=== PATIENT | female | born 1965 | race Caucasian/White ===

== ENCOUNTER 2017-09-15 01:05 | Inpatient (IN) ==
--- OUTSIDE RECORDS SUMMARY | 2017-09-15 01:13 | External Medical Summary | Referral Summary ---
:1965 Author Organization [facility] Address [address] [place] [address] Care Team Providers Name Role Phone Nav Lan Primary Care Physician Encounter [facility] [phone] Date(s): 08/30/15 - 08/30/15 [facility] Gambino [address] [address]- [place] Discharge Diagnosis: Chronic right hip pain Discharge Diagnosis: Well adult Discharge Disposition: 01-Home or Self Care Attending Physician: Nav Lan MD Admitting Physician: Nav Lan MD Vital Signs Most recent to oldest [Reference Range]: 1 Peripheral Pulse Rate [60-100 bpm] 79 bpm (08/30/15 8:31 AM) Blood Pressure [90-140/60-90 mmHg] 120/90 mmHg (08/30/15 8:31 AM) SpO2 96 % (08/30/15 8:31 AM) Problem List No Known Problems Allergies, Adverse Reactions, Alerts Substance Reaction Severity Status penicillin Active Medications Amethia Lo oral tablet 1 tabs, Oral, Daily, 0 Refill(s) Start Date: 08/30/15 Status: Ordered Results Hematology Most recent to oldest [Reference Range]: 1 WBC [4.8-10.8 10*3/uL] 7.9 10*3/uL (08/30/15 9:15 AM) RBC [4.00-5.20] 4.54 (08/30/15 9:15 AM) Hgb [12.0-16.0 gm/dL] 14.3 gm/dL (08/30/15 9:15 AM) Hct [37.0-47.0 %] 40.5 % (08/30/15 9:15 AM) MCV [82.0-99.0 fL] 89.2 fL (08/30/15:15 AM) MCH [27.0-32.0 pg] 31.5 pg (08/30/15 AM) MCHC [32.0-36.0 gm/dL] 35.3 gm/dL (08/30/15:15 AM) RDW [11.5-14.5 %] 12.7 % (08/30/15 AM) Platelet [150-400 10*3/uL] 239 10*3/uL (08/30/15:15 AM) MPV [8.8-14.8 fL] 11.8 fL (08/30/15: AM) Immature Granulocytes [0.0-1.0 %] 0.1 % (08/30/15 AM) Neutrophils [51-75 %] 59 % (08/30/15 AM) Lymphocytes [20-46 %] 34 % (08/30/1515 AM) Monocytes [4-11 %] 6 % (08/30/15:15 AM) Eosinophils [0-4 %] 1 % (08/30/15:15 AM) Basophils [0-2 %] 0 % (08/30/15 AM) Neutro Absolute [1.90-7.00 10*3] 4.68 10*3 (08/30/15:15 AM) Lymph Absolute [0.80-3.30 10*3] 2.65 10*3 (08/30/15:15 AM) Hickman Absolute [0.30-1.00 10*3] 0.50 10*3 (08/30/15 9:15 AM) Eos Absolute [0.00-0.50 10*3] 0.04 10*3 (08/30/15 9:15 AM) Baso Absolute [0.00-0.20 10*3] 0.01 10*3 (08/30/15 9:15 AM) Chemistry Most recent to oldest [Reference Range]: 1 Sodium Lvl [135-144 mEq/L] 141 mEq/L (08/30/15 9:15 AM) Potassium Lvl [3.5-5.2 mEq/L] 4.2 mEq/L (08/30/15 9:15 AM) Chloride [99-111 mEq/L] 107 mEq/L (08/30/15 9:15 AM) CO2 [22-31 mEq/L] 26 mEq/L (08/30/15 9:15 AM) AGAP [3-20] 8 (08/30/15 9:15 AM) BUN [7-19 mg/dL] 10 mg/dL (08/30/15:15 AM) Glucose Lvl [70-99 mg/dL] 89 mg/dL (08/30/15 9:15 AM) Creatinine Lvl [0.57-1.11 mg/dL] 0.82 mg/dL (08/30/15 9:15 AM) eGFR [>60 mL/min] >60 mL/min 1 (08/30/15:15 AM) Calcium Lvl [8.9-10.5 mg/dL] 9.5 mg/dL (08/30/15 9:15 AM) Albumin Lvl [3.5-5.0 gm/dL] 4.2 gm/dL (08/30/15 9:15 AM) Total Protein [6.4-8.3 gm/dL] 6.7 gm/dL (08/30/15 9:15 AM) Globulin [1.8-4.0 gm/dL] 2.5 gm/dL (08/30/15 9:15 AM) ALT [0-55 U/L] 11 U/L (08/30/15 9:15 AM) AST [5-34 U/L] 17 U/L (08/30/15:15 AM) Alk Phos [40-150 U/L] 51 U/L (08/30/15 9:15 AM) Bili Total [0.2-1.2 mg/dL] 0.5 mg/dL (08/30/15 9:15 AM) Chol [0-199 mg/dL] 190 mg/dL (08/30/15 9:15 AM) Trig [0-149 mg/dL] 90 mg/dL (08/30/15 9:15 AM) HDL [40-84 mg/dL] 68 mg/dL (08/30/15 9:15 AM) LDL [0-130 mg/dL] 104 mg/dL (08/30/15 9:15 AM) VLDL Cholesterol [0-28 mg/dL] 18 mg/dL (08/30/15 9:15 AM) Cardiac Risk [0.0-5.0] 2.8 (08/30/15 9:15 AM) 1Result Comment: Multiply eGFR results by 1.21 for race. Immunizations No data available for this section Procedures Procedure Date Related Diagnosis Body Site Collection of venous blood by venipuncture 08/30/15 Social History Social History Type Response Smoking Status Former smoker; Type: Cigarettes; Tobacco use per day: Less than Pack; Stopped at age: 34 Assessment and Plan Extracted from: Title: Ambulatory Patient Education Author: Nav Lan MD Date: Family Medicine Health Maintenance Adopting a healthy lifestyle and getting preventive care can go a long way to promote health and wellness. Talk with your health care provider about what schedule of regular examinations is right for yo u. This is a good chance for you to check in with your provider about disease prevention and staying healthy. In between checkups, there are plenty of things you can do on your own. Experts have done a lot of research about which lifestyle changes and preventive measures are most likely to keep you healthy. Ask your health care provider for more information. WEIGHT AND DIET Eat a healthy diet Be sure to include plenty of vegetables, fruits, low-fat dairy products, and lean protein. Do not eat a lot of foods high in solid fats, added sugars, or salt. Get regular exercise. This is one of the most important things you can do for your health. Most adults should exercise for at least 150 minutes each week. The exercise should increase your heart rate and make you sweat (moderate-intensity exercise). Most adults should also do strengthening exercises at least twice a week. This is in addition to the moderate-intensity exercise. Maintain a healthy weight Body mass index (BMI) is a measurement that can be used to identify possible weight problems. It estimates body fat based on height and weight. Your health care provider can help determine your BMI and help you achieve or maintain a healthy weight. For females 20 years of age and older: A BMI below 18.5 is considered underweight. A BMI of 18.5 to 24.9 is normal. A BMI of 25 to 29.9 is considered overweight. A BMI of 30 and above is considered obese. Watch levels of cholesterol and blood lipids You should start having your blood tested for lipids and cholesterol at 20 years of age, then have this test every 5 years. You may need to have your cholesterol levels checked more often if: Your lipid or cholesterol levels are high. You are older than 50 years of age. You are at high risk for heart disease. CANCER SCREENING Lung Cancer Lung cancer screening is recommended for adults 5580 years old who are at high risk for lung cancer because of a history of smoking. A yearly low-dose CT scan of the lungs is recommended for people who: Currently smoke. Have quit within the past 15 years. Have at least a 63-jjxo-twca history of smoking. A pack year is smoking an average of one pack of cigarettes a day for 1 year. Yearly screening should continue until it has been 15 years since you quit. Yearly screening should stop if you develop a health problem that would prevent you from having lung cancer treatment. Breast Cancer Practice breast self-awareness. This means understanding how your breasts normally appear and feel. It also means doing regular breast self-exams. Let your health care provider know about any changes, no matter how small. If you are in your 20s or 30s, you should have a clinical breast exam (CBE ) by a health care provider every 13 years as part of a regular health exam. If you are 40 or older, have a CBE every year. Also consider having a breast X-ray (mammogram) every year. If you have a family history of breast cancer, talk to your health care provider about genetic screening. If you are at high risk for breast cancer, talk to your health care provider about having an MRI and a mammogram every year. Breast cancer gene (BRCA) assessment is recommended for women who have family members with BRCA-related cancers. BRCA-related cancers include: Breast. Ovarian. Tubal. Peritoneal cancers. Results of the assessment will determine the need for genetic counseling and BRCA1 and BRCA2 testing. Cervical Cancer Routine pelvic examinations to screen for cervical cancer are no longer recommended for non women who are considered low risk for cancer of the pelvic organs (ovaries, uterus, and vagina) and wh o do not have symptoms. A pelvic examination may be necessary if you have symptoms including those associated with pelvic infections. Ask your health care provider if a screening pelvic exam is right for you. The Pap test is the screening test for cervical cancer for women who are considered at risk. If you had a hysterectomy for a problem that was not cancer or a condition that could lead to cancer, then you no longer need Pap tests. If you are older than 65 years, and you have had normal Pap tests for the past 10 years, you no longer need to have Pap tests. If you have had past treatment for cervical cancer or a condition that could lead to cancer, you need Pap tests and screening for cancer for at least 20 years after your treatment. If you no longer get a Pap test, assess your risk factors if they change ( such as having a new sexual partner). This can affect whether you should start being screened again. Some women have medical problems that increase their chance of getting cervical cancer. If this is the case for you, your health care provider may recommend more frequent screening and Pap tests. The human papillomavirus (HPV) test is another test that may be used for cervical cancer screening. The HPV test looks for the virus that can cause cell changes in the cervix. The cells collected during the Pap test can be tested for HPV. The HPV test can be used to screen women 30 years of age and older. Getting tested for HPV can extend the interval between normal Pap tests from three to five years. An HPV test also should be used to screen women of any age who have unclear Pap test results. After 30 years of age, women should have HPV testing as often as Pap tests. Colorectal Cancer This type of cancer can be detected and often prevented. Routine colorectal cancer screening usually begins at 50 years of age and continues through 75 years of age. Your health care provider may recommend screening at an earlier age if you have risk factors for colon cancer. Your health care provider may also recommend using home test kits to check for hidden blood in the stool. A small camera at the end of a tube can be used to examine your colon directly (sigmoidoscopy or colonoscopy). This is done to check for the earliest forms of colorectal cancer. Routine screening usually begins at age 50. Direct examination of the colon should be repeated every 510 years through 75 years of age. However, you may need to be screened more often if early forms of precancerous polyps or small growths are found. Skin Cancer Check your skin from head to toe regularly. Tell your health care provider about any new moles or changes in moles, especially if there is a change in a mole's shape or color. Also tell your health care provider if you have a mole that is larger than the size of a pencil eraser. Always use sunscreen. Apply sunscreen liberally and repeatedly throughout the day. Protect yourself by wearing long sleeves, pants, a wide-brimmed hat, and sunglasses whenever you are outside. HEART DISEASE, DIABETES, AND HIGH BLOOD PRESSURE Have your blood pressure checked at least every 12 years. High blood pressure causes heart disease and increases the risk of stroke. If you are between 55 years and 79 years old, ask your health care provider if you should take aspirin to prevent strokes. Have regular diabetes screenings. This involves taking a blood sample to check your fasting blood sugar level. If you are at a normal weight and have a low risk for diabetes, have this test once every three years after 45 years of age. If you are overweight and have a high risk for diabetes, consider being tested at a younger age or more often. PREVENTING INFECTION Hepatitis B If you have a higher risk for hepatitis B, you should be screened for this virus. You are considered at high risk for hepatitis B if: You were born in a country where hepatitis B is common. Ask your health care provider which countries are considered high risk. Your parents were born in a high-risk country, and you have not been immunized against hepatitis B (hepatitis B vaccine). You have HIV or AIDS. You use needles to inject street drugs. You live with someone who has hepatitis B. You have had sex with someone who has hepatitis B. You get hemodialysis treatment. You take certain medicines for conditions, including cancer, organ transplantation, and autoimmune conditions. Hepatitis C Blood testing is recommended for: Everyone born from 1945 through 1965. Anyone with known risk factors for hepatitis C. Sexually transmitted infections (STIs) You should be screened for sexually transmitted infections (STIs) including gonorrhea and chlamydia if: You are sexually active and are younger than 24 years of age. You are older than 24 years of age and your health care provider tells you that you are at risk for this type of infection. Your sexual activity has changed since you were last screened and you are at an increased risk for chlamydia or gonorrhea. Ask your health care provider if you are at risk. If you do not have HIV, but are at risk, it may be recommended that you take a prescription medicine daily to prevent HIV infection. This is called pre- exposure prophylaxis (PrEP). You are considered at risk if: You are sexually active and do not regularly use condoms or know the HIV status of your partner(s). You take drugs by injection. You are sexually active with a partner who has HIV. Talk with your health care provider about whether you are at high risk of being infected with HIV. If you choose to begin PrEP, you should first be tested for HIV. You should then be tested every 3 months for as long as you are taking PrEP. If you are premenopausal and you may become , ask your health care provider about preconception counseling. If you may become , take 400 to 800 micrograms (mcg) of folic acid every day. If you want to prevent , talk to your health care provider about control (contraception). OSTEOPOROSIS AND MENOPAUSE Osteoporosis is a disease in which the bones lose minerals and strength with aging. This can result in serious bone fractures. Your risk for osteoporosis can be identified using a bone density scan. If you are 65 years of age or older, or if you are at risk for osteoporosis and fractures, ask your health care provider if you should be screened. Ask your health care provider whether you should take a calcium or vitamin D supplement to lower your risk for osteoporosis. Menopause may have certain physical symptoms and risks. Hormone replacement therapy may reduce some of these symptoms and risks. Talk to your health care provider about whether hormone replacement therapy is right for you. HOME CARE INSTRUCTIONS Schedule regular health, dental, and eye exams. Stay current with your immunizations. Do not use any tobacco products including cigarettes, chewing tobacco, or electronic cigarettes. If you are , do not drink alcohol. If you are , limit how much and how often you drink alcohol. Limit alcohol intake to no more than 1 drink per day for non women. One drink equals 12 ounces of beer, 5 ounces of wine, or 1 ounces of hard liquor. Do not use street drugs. Do not share needles. Ask your health care provider for help if you need support or information about quitting drugs. Tell your health care provider if you often feel depressed. Tell your health care provider if you have ever been abused or do not feel safe at home. Document Released: 04/13/2012 Document Revised: 02/13/2015 Document Reviewed: 08/31/2014 [facility] Patient Information 2015 [employer] [facility]. This information is not intended to replace advice given to you by your health care provider. Make sure you discuss any questions you have with your health care provider. Musculoskeletal Pain Musculoskeletal pain is muscle and lupe aches and pains. These pains can occur in any part of the body. Your caregiver may treat you without knowing the cause of the pain. They may treat you if blood o r urine tests, X-rays, and other tests were normal. CAUSES There is often not a definite cause or reason for these pains. These pains may be caused by a type of germ (virus). The discomfort may also come from overuse. Overuse includes working out too hard when your body is not fit. Lupe aches also come from weather changes. Bone is sensitive to atmospheric pressure changes. HOME CARE INSTRUCTIONS Ask when your test results will be ready. Make sure you get your test results. Only take [id number] or prescription medicines for pain, discomfort , or fever as directed by your caregiver. If you were given medications for your condition, do not drive, operate machinery or power tools, or sign legal documents for 24 hours. Do not drink alcohol. Do not take sleeping pills or other medications that may interfere with treatment. Continue all activities unless the activities cause more pain. When the pain lessens, slowly resume normal activities. Gradually increase the intensity and duration of the activities or exercise. During periods of severe pain, bed rest may be helpful. Lay or sit in any position that is comfortable. Putting ice on the injured area. Put ice in a bag. Place a towel between your skin and the bag. Leave the ice on for 15 to 20 minutes, 3 to 4 times a day. Follow up with your caregiver for continued problems and no reason can be found for the pain. If the pain becomes worse or does not go away, it may be necessary to repeat tests or do additional lizeth ting. Your caregiver may need to look further for a possible cause. SEEK IMMEDIATE MEDICAL CARE IF: You have pain that is getting worse and is not relieved by medications. You develop chest pain that is associated with shortness or breath, sweating, feeling sick to your stomach (nauseous), or throw up (vomit). Your pain becomes localized to the abdomen. You develop any new symptoms that seem different or that concern you. MAKE SURE YOU: Understand these instructions. Will watch your condition. Will get help right away if you are not doing well or get worse. Document Released: 09/29/2006 Document Revised: 12/21/2012 Document Reviewed: 06/03/2014 [employer] Patient Information 2015 [employer]. This information is not intended to replace advice given to you by your health care provider. Make sure you discuss any questions you have with your health care provider. No follow up information was provided.
--- OUTSIDE RECORDS SUMMARY | 2017-09-15 01:13 | External Medical Summary | Continuity of Care Document ---
:1965 Author Organization [facility] Allergies Active Description Code Type Severity Reaction Onset Reported/ Identified Relationship Clinical to Patient Status Yes Penicillins 476 3 N/A Rash Medications Medication Packaging Start Date Stop Date Route Dosage Sig Tablet 12/27/2015 11/03/2016 AMETHIA LO take 1 tablet by oral route every day Tablet 01/07/2017 11/15/2017 AMETHIA LO take 1 tablet by oral route every day Problems Procedures Results Encounters ACCT No. Visit Discharge Status Pt. Type Provider Facility Loc./Unit Complaint Date/Time [id number] 01/07/2017 01/07/2017 [facility] Outpatient Fili, 08:45:00 23:59:59 Aidan Carranza [id number] 12/31/2015 12/31/2015 [facility] Out[facility]ili, 17:26:00 23:59:59 Aidan Carranza [id number] 12/27/2015 12/27/2015 [facility] Outpatient Fili, 15:45:00 23:59:59 Aidan Carranza
[2017-09-15] MEDS ORDERED: SALINE FLUSH 10ml SYRINGE IVF PRN (01:23)
[2017-09-15] MEDS ORDERED: HYDROMORPHONE 2 MG/ML INJECTION IVP ONE ×2 (01:28→02:09)
[2017-09-15] MEDS ORDERED: ONDANSETRON 4 MG/2 ML INJECTION IVP ONE (01:28)
[2017-09-15] MEDS ORDERED: KETOROLAC 30 MG/ML INJECTION IVP ONE (01:28)
[2017-09-15] MEDS ORDERED: NS 1,000 ML IV ONE (01:29)
--- NOTE | 2017-09-15 01:30 | Emergency Department Report ---
Abdominal Pain HPI - General Chief Complaint: Abdominal Pain Stated Complaint: appendix attack Time Seen by Provider: 09/15/17 01:06 Source: patient Mode of arrival: ambulatory Limitations: no limitations - History of Present Illness HPI narrative: Patient began having abdominal pain with cramping nausea and diaphoresis 24 hours ago. Over the past 3-4 hours the pain has become significant in the right lower quadrant, and any movement whatsoever causes significant increased pain. Patient still feels chilled occasionally, but has not been running fever. Patient has had occasional nausea without vomiting, no diarrhea, no bloody stools. - Related Data Home Medications Medication Instructions Recorded Confirmed l-Norgest/E.estradiol-E.estrad 1 tab PO DAILY 09/15/17 09/15/17 [Camrese Lo Tablet] Allergies Allergy/AdvReac Type Severity Reaction Status Date / Time Penicillins Allergy Verified 09/15/17 01:31 Review of Systems All systems: reviewed and negative except as stated PFSH Negative Surgical History: Negative - Social History Smoking status: Never smoker Substance use type: does not use Alcohol intake frequency: does not drink Physical Exam - Limitations Limitations: no limitations - Normal Exams: Head:: Normocephalic without trauma Eyes:: Pupils are PERRLA w/ EOMI, No scleral icterus, irritation, or foreign bodies noted ENMT:: No facial trauma, nasal exudates, pharyngeal erythema, or exudates are noted Neck:: Full range of motion, without adenopathy, JVD, bruits or thyromegaly Chest/Respirations:: Clear all zamora, with good airflow, and symmetry bilaterally Cardiovascular:: Regular rate and rhythm, without murmur or gallop, Pulses 2+ all extremities, capillary refill, <2 seconds all extremities Lymphatic:: No lymphadenopathy, or lymphedema noted Musculoskeletal:: No tenderness, or deformity noted, good range of motion, all extremities Integumentary:: No rashes, hives, or bruising noted, hair and nails, without abnormality Neurological:: Patient is alert, and oriented, cranial nerves, motor/sensory/ cerebellar, exams w/o gross deficits, to observation Psychiatric:: Patient exhibits, appropriate attention, emotion and affect - Abdominal Exam Abdominal exam: Present: soft, tenderness, guarding, rebound, rigidity, hypoactive bowel sounds, heel tap sign, tenderness at McBurney's Point. Absent : distention, trauma, incision, psoas sign, obturator sign, Burgos's sign, Rovsing's sign, mass, pulsatile mass, hernia, scar Abdominal Pain - [facility] Narrative Medical decision making narrative: Patient given Toradol 30 mg, Zofran 4 mg, Dilaudid 0.5 mg IV with 1 L normal saline IV fluid bolus CBC - elevated white blood cell count 21,000, moderate left shift CMP/L - normal Serum - negative CT A/P - acute appendicitis with questionable perforation. Patient has a 13 mm dilated appendix, retrocecal on the right, with significant inflammation, periappendiceal stranding, and significant amount of fluid, however no obvious consolidations consistent with abscess. Patient is discussed with Dr. Doss, we'll start Zosyn in the ER, and plan appendectomy first thing this morning - Lab Data Result diagrams: 09/15/17 01:46 09/15/17 01:46 Disposition Clinical Impression: Acute appendicitis Qualifiers: Acute appendicitis type: with localized peritonitis Qualified Code(s): K35.3 - Acute appendicitis with localized peritonitis Disposition: 02 To [facility] Condition: Improved Prescriptions: No Action l-Norgest/E.estradiol-E.estrad [Camrese Lo Tablet] 1 tab PO DAILY Referrals: Nav Lan [Family Provider] - - Seen By: physician
[2017-09-15] MEDS ORDERED: IOHEXOL 300mg/ml 100ml INJECTION ONE (01:54)
[2017-09-15] MEDS ORDERED: SALINE FLUSH 10ml SYRINGE ONE (01:55)
[2017-09-15] MEDS ORDERED: NS 100 ML ONE (01:55)
[2017-09-15] MEDS ORDERED: PIPERACILLIN/TAZOBACTAM 3.375 GM in NS 100 ML IV ONE ×2 (03:02→09:42)
[2017-09-15] MEDS ORDERED: HYDROMORPHONE 2 MG/ML INJECTION IVP PRN ×3 (03:03→11:34)
[2017-09-15] MEDS ORDERED: ONDANSETRON 4 MG/2 ML INJECTION IVP PRN ×3 (03:03→11:34)
[2017-09-15] MEDS ORDERED: NS 1,000 ML IV SCH (03:15)
[2017-09-15 04:13] VITALS: BMI 21.7
--- NOTE | 2017-09-15 08:15 | CT Scan Report ---
Indication: RLQ pain, appendicitis PROCEDURE: CT abdomen pelvis w con: Encounter: Initial Comparison: None. Findings: CT ABDOMEN: Included portions of the lung bases are clear. Heart size normal. No pleural effusion. The liver, spleen, kidneys, pancreas, and adrenal glands are normal. The gallbladder is thin walled and nondistended, without stones. The abdominal aorta is non-aneurysmal, without significant atherosclerotic disease. There is no retroperitoneal or mesenteric adenopathy. There is some free fluid in the subhepatic space in the right paracolic gutter, caudal to the gallbladder with appendiceal dilation and periappendiceal edema. CT PELVIS: The urinary bladder is not distended. The uterus and ovaries are not enlarged. There is no pelvic sidewall adenopathy. No free fluid. No definite bony destructive process. IMPRESSION: Acute appendicitis with appendiceal dilation and moderate periappendiceal edema. No definite free perforation or periappendiceal abscess. Preliminary report was provided by Dania little .
[2017-09-15] MEDS: LR 1,000 ML IV SCH ×4 (08:55→15:12)
[2017-09-15] MEDS ORDERED: BUPIVACAINE 0.25% (2.5mg/ml) PF 30ml INJECTION ONE (09:03)
[2017-09-15] MEDS ORDERED: ROCURONIUM 50 MG/5 ML INJECTION IVP ONE (09:05)
[2017-09-15] MEDS ORDERED: PROPOFOL 20 ML ONE (09:05)
[2017-09-15] MEDS ORDERED: FentaNYL 250 MCG/5 ML INJECTION ONE (09:05)
[2017-09-15] MEDS ORDERED: DEXAMETHASONE 4 MG/ML INJECTION ONE (09:05)
[2017-09-15] MEDS ORDERED: LIDOCAINE VISCOUS 2% ORAL LIQUID 15ml ONE (09:24)
[2017-09-15] MEDS ORDERED: BUPIVACAINE 0.25% (2.5mg/ml) PF 30ml INJECTION SQ ONE (09:57)
[2017-09-15] MEDS ORDERED: DiphenhydrAMINE 50 MG/ML INJECTION ONE (10:08)
--- NOTE | 2017-09-15 10:17 | Anesthesia Preoperative Report ---
Anesthesia Preoperative Record - Date and Time Date: 09/15/17 Preoperative Diagnosis: Acute Appendicitis Proposed Procedure: Lap Appendectomy NPO Since Date: 09/14/17 NPO Since Time: 23:00 Allergies/Adverse Reactions: Allergies Allergy/AdvReac Type Severity Reaction Status Date / Time Penicillins Allergy Verified 09/15/17 01:31 - Vital Signs Vital Signs: Temperature 100.1 F 09/15/17 08:12 Pulse Rate 97 09/15/17 08:12 Respiratory Rate 16 09/15/17 08:12 Blood Pressure 118/76 09/15/17 08:12 Pulse Oximetry 98 09/15/17 04:07 Height and Weight: Height 5 ft 6 in Weight 61.3 kg Body Mass Index 21.7 - Medications Inpatient Medications: Current Medications Hydromorphone HCl (Dilaudid) 0.5 mg IVP Q2H PRN PRN Reason: Pain Last Admin: 09/15/17 07:49 Dose: 0.5 mg Sodium Chloride (Normal Saline) 1,000 mls @ 75 mls/hr IV .[id number] ELDON Last Infusion: 09/15/17 08:35 Dose: 0 mls/hr Lactated Ringer's (Lactated Ringers) 1,000 mls @ 100 mls/hr IV .Q10H ELDON Last Admin: 09/15/17 10:10 Dose: 100 mls/hr Ondansetron HCl (Zofran) 4 mg IVP Q4H PRN PRN Reason: Nausea &/or vomiting Sodium Chloride (Iv Flush) 10 - 80 ml IVF PRN PRN PRN Reason: Flushing Last Admin: 09/15/17 01:56 Dose: 10 ml Home Medications: Home Medications Medication Instructions Recorded Confirmed Type l-Norgest/E.estradiol-E.estrad 1 tab PO DAILY 09/15/17 09/15/17 History [Camrese Lo Tablet] Is Patient on Beta Michael?: No - Medical History Respiratory: Reports: Pneumonia DENIES: Asthma, Bronchitis, Chronic Obstructive Pulmonary Disease (COPD), Dyspnea, Orthopnea, Pulmonary Embolism, Upper Respiratory Infection, Pulmonary Edema, Sleep Apnea, Tuberculosis, Other Cardiovascular: DENIES: Abnormal EKG, Angina, Arrhythmia, Congestive Heart Failure, Coronary Artery Disease, Heart Murmur, Hypertension, Hypotension, High Cholesterol, Myocardial Infarction, Rheumatic Fever, Valvular Heart Disease, Other Gastrointestional: DENIES: Obstructive Bowel, Hepatitis, Cirrhosis, Nausea or Vomiting Present, Gastroesophageal Reflux Disease, Gastrointestinal Bleeding, Hiatal Hernia, Ulcer , Morbid Obesity, Other Neuro/Musculoskeletal: Denies: HX.MS.OSAR, Back Problems, Cerebrovascular Accident, Depression, Headaches, Loss of Consciousness, Muscle Weakness, Neuromuscular Disorder, Paralysis, Paresthesia, Syncope, Seizures, Other Renal/Endocrine: DENIES: Diabetes Mellitus Type 1, Diabetes Mellitus Type 2, Renal Failure, Dialysis, Thyroid Disease, Weight Loss, Weight Gain, Other Other History: DENIES: Anesthesia Reactions, Now, Blood Transfusions, Chemotherapy , Cancer, Hemophilia, Malignant Hyperthermia, Sickle Cell Disease, Other - Surgical History Reproductive Surgery/Treatment: Reports: Section, Dilation and Curettage, Tubal Ligation DENIES: Hysterectomy Anesthesia Reactions: None Hx Family Anesthesia Reaction: No History of Motion Sickness: Yes (some) - Social History Smoking Status: Never smoker Hx Chewing Tobacco Use: No Second Hand Exposure: No Substance Use Type: does not use Alcohol Intake Frequency: does not drink - Pertinent Findings Laboratory: Urine 09/15/17 Range/Units 04:07 Urine Color Yellow (YELLOW) Urine Clarity Clear Urine pH 6.5 (5.0-8.0) Ur Specific [place] 1.010 L (1.015-1.025) Urine Protein Negative (NEGATIVE) Urine Glucose (UA) Negative (NEGATIVE) EKG: Sinus Tachycardia - Physical Exam Respiratory Exam: Present: lungs clear, bilateral breath sounds equal Cardiovascular Exam: Present: regular rate and rhythm, no murmur - Airway Assessment Mallampati Score: II TMD: 3 Fingerbreadths Teeth: upper dentures, chipped teeth/crowns (reports crowns) Overall Assessment: no airway concerns - ASA ASA Score: 1, E - Plan Anesthesia: General Inhalation Gases - Discussion Discussion: Discussed risks/options/alternatives of anesthesia and questions answered. Patient consents. Nursing pain assessment noted. Present for Discussion: spouse Attestation Statement: Prior to the delivery of any anesthetic medication, I examined the patient, developed the plan, obtained the patient's consent and discussed the risk and benefits of the procedure with the patient/guardian. - Additional Information Comments: Pt febrile Seen by Anesthesia: Yes
--- NOTE | 2017-09-15 10:43 | History and Physical ---
HISTORY OF PRESENT ILLNESS This patient is 51 years old. This patient experienced the onset of abdominal pain at 0130 hours on 09/14/2017. This pain continued throughout the day on 09/14/2017. The abdominal pain was generalized abdominal pain at first. The pain then localized down to the right lower quadrant of the abdomen. The patient had nausea during this time. She had no vomiting. She did not have any diarrhea. The patient did come to [facility] Emergency Room early on the morning of 09/15/2017 for evaluation of this abdominal pain. The patient was noted at the time of evaluation at the emergency room to have leukocytosis. The patient did undergo a CT scan of the abdomen and pelvis at the time of the emergency room evaluation. The CT scan of the abdomen and pelvis did show acute appendicitis with possible perforation. The patient had a 13 mm dilated appendix which was in a retrocecal position with significant surrounding inflammation. The patient was admitted to [facility] with a diagnosis of acute appendicitis. PAST MEDICAL HISTORY Previous Operations: 1. Removal of wisdom teeth in [place]. 2. section on 09/25/[address] Cathryn Penn to [facility] at [place], [place]. 3. Dilation and curettage in 2001 at [facility] at [place], [place]. 4. Dilation and curettage and operation for treatment of bilateral tubal pregnancies in [address] Lan at the [facility] at [place], [place]. 5. Repeat section on 05/16/[address] Aidan Penn at [facility] at [place], [place].. CURRENT MEDICATIONS 1. control pills 1 p.o. daily 2. Multivitamins 1 p.o. daily. ALLERGY HISTORY The patient is allergic to penicillin which causes a rash. PHYSICAL EXAMINATION VITAL SIGNS: Temperature is 100.1 degrees Fahrenheit oral. Pulse is 97. Respiratory rate is 16. Blood pressure is 118/76. Oxygen saturation is 98% on room air. HEAD, EYES, EARS, NOSE AND THROAT: No abnormalities noted. NECK: No neck masses. CHEST: Lung sounds are clear. BREASTS: Not examined. HEART: Regular rhythm. No murmurs. ABDOMEN: The patient does have an old Pfannenstiel abdominal incision scar. The abdomen is soft. The patient does have right lower quadrant abdominal tenderness. RECTUM: Exam deferred. SKIN: No jaundice. EXTREMITIES: No abnormalities noted.. LABORATORY DATA White blood cell count is 21,600 with 93% neutrophils. Hemoglobin is 14.7. Hematocrit is 42.4. Liver function tests are all normal. Serum test is negative. Urinalysis is unremarkable. Serum lactate and procalcitonin levels are still pending. LABORATORY DATA The patient did undergo a CT scan of the abdomen and pelvis on 09/15/2017. This does show findings consistent with acute appendicitis. There is prominent periappendiceal inflammatory change and fluid. The appendix is located in a retrocecal and subhepatic position. The distal tip of the appendix is located 1.5 cm inferior to the inferior edge of the right lobe of the liver. No discrete abscess is seen around the appendix. IMPRESSION 1. Acute appendicitis. 2. Sepsis. INFORMED DISCLOSURE I did talk with the patient about undergoing laparoscopic appendectomy. The nature of the laparoscopic appendectomy operation was explained to the patient. The patient was informed that there is always a chance that any laparoscopic appendectomy might need to be converted over to an open laparotomy with appendectomy operation. Expected benefits of the operation were discussed. Alternatives were discussed including nonoperative antibiotic treatment for acute appendicitis. Potential risks and complications of laparoscopic appendectomy were discussed including anesthetic risk, bleeding, infection, poor wound healing and injury to intraabdominal and retroperitoneal structures around the appendix at the time of operation. Postoperative abscess was discussed as a possible postoperative risk. Postoperative course of recovery was described to the patient. Questions were solicited from the patient. All of her questions were answered. The patient does wish to proceed. PLAN Laparoscopic appendectomy by Dr. Doss at [facility]. ABDIEL
[2017-09-15] MEDS ORDERED: SUGAMMADEX 200mg/2ml INJECTION IVP ONE (10:48)
--- NOTE | 2017-09-15 10:56 | General Surgery Procedure Note ---
Date of Procedure: 09/15/17 Surgeon: Selam Postoperative Diagnosis: Acute appendicitis with perforation Procedure: Laparoscopic appendectomy Estimated Blood Loss: See Anesthesia Record.
--- NOTE | 2017-09-15 11:16 | Anesthesia Postoperative Note ---
- Date and Time Date: 09/15/17 Time: 11:15 - Status Patient Participated in Evaluation: Patient Participated in Person Vital Signs: Temperature 99 F 09/15/17 10:54 Pulse Rate 100 09/15/17 11:10 Respiratory Rate 14 09/15/17 11:10 Blood Pressure 98/52 09/15/17 11:10 Pulse Oximetry 97 09/15/17 11:10 Respiratory Function: Airway Patent, Regular Respirations Cardiovascular Function: Regular Pulse EKG: Sinus Rhythm Mental Status: Alert and Oriented Pain Intensity: 0 Hydration: IV Infusing Complications During Recover: None Apparent - Follow-Up Instructions Instructions: Per Surgeon
[2017-09-15] MEDS ORDERED: Oxycodone *IR* 5 MG TABLET PO PRN (11:34)
[2017-09-15] MEDS ORDERED: PROMETHAZINE 25 MG INJECTION IVP PRN (11:34)
[2017-09-15] MEDS: NORGEST PO SCH (14:48)
[2017-09-15] MEDS: E ESTRADIOL E ESTRAD PO SCH (14:48)
[2017-09-15] MEDS: IBUPROFEN 200 MG TABLET PO PRN ×2 (15:21→23:09)
[2017-09-15] MEDS: PIPERACILLIN/TAZOBACTAM 3.375 GM in NS 100 ML IV SCH ×2 (15:59→23:05)
--- NOTE | 2017-09-15 16:36 | Operative Note ---
DATE OF OPERATION 09/15/2017 PREOPERATIVE DIAGNOSIS Acute appendicitis. POSTOPERATIVE DIAGNOSIS Acute appendicitis with perforation and generalized peritonitis. OPERATION Laparoscopic appendectomy. SURGEON Dr. Doss ANESTHESIA General. ASA Class 1E FINDINGS The patient did have acute appendicitis with perforation. This appeared to be acute necrotizing appendicitis. The perforation site at the appendix was obvious. There was generalized peritonitis. There was purulent fluid all along the right lateral gutter. There was purulent fluid at the right subdiaphragmatic space and the right side subhepatic space. There was purulent fluid down in the pelvis. There was purulent fluid in the left lateral gutter. There was purulent fluid in all four quadrants of the abdomen. There was inflammatory exudate all along the right lateral gutter. There was purulent exudate over the appendix. The appendix was in a more superior position than normal as demonstrated on the preoperative CT scan. The preoperative CT scan stated that the appendix was 1.5 cm inferior to the margin of the liver and this did appear to be the case. The appendix was down in the right lateral gutter but the tip of the appendix did extend up superiorly up to near the margin of the liver. There was inflammatory exudate over the gallbladder surface and over the margin of the liver. There was no walled off abscess. DESCRIPTION OF OPERATION The patient was placed in supine position on the operating table. General anesthesia was satisfactorily induced. A Sanders catheter was inserted into the urinary bladder. The abdomen was prepped and draped in routine sterile fashion. The skin and underlying structures at the abdominal wall at an infraumbilical incision site were infiltrated with bupivacaine 0.25% without epinephrine. An infraumbilical incision was made. A Veress needle was inserted into the peritoneal cavity through the incision. Pneumoperitoneum was established with carbon dioxide. The Veress needle was removed. A 5-mm port was placed at the infraumbilical incision. The 5-mm laparoscope was inserted through the 5-mm infraumbilical port. The skin and underlying abdominal wall structures were infiltrated with bupivacaine at the epigastric region of the abdomen at the midline. An incision was made at this location and a 5-mm port was placed at the epigastric region of the abdomen at the midline. The skin and underlying abdominal wall structures were infiltrated with bupivacaine at a suprapubic incision site. A suprapubic incision was made at the midline. A 12- mm port was placed at the suprapubic incision. The peritoneal cavity was examined with laparoscope with findings as described above. An aspirating cannula was inserted and used to aspirate a sample of purulent fluid from the pelvis. This purulent peritoneal fluid was submitted to the laboratory for culture and sensitivity studies. Irrigation was performed at the right lateral gutter with a suction irrigation device. Some inflammatory exudate was removed with the suction irrigation device at the right lateral gutter and over the margin of the liver and over the gallbladder. With this irrigation and removal of inflammatory exudate with the suction irrigation device, the position of the appendix was determined. The appendix was bluntly dissected free of surrounding structures to some extent with the suction irrigation device. The appendix was then grasped and elevated with the endoscopic Christal forceps inserted at the suprapubic port. The appendix was dissected free of surrounding structures further by blunt dissection with the suction irrigation device. The mesoappendix was then divided with the Ethicon brand 5-mm laparoscopic ultrasonically activated coagulating enzo. This was the Harmonic Erasmo ultrasonic enzo. This was inserted at the epigastric port and used to coagulate and divide the mesoappendix. The appendix was completely freed up in this manner. Two separate 0-PDS Endoloop ligatures were applied to the base of the appendix adjacent to the cecum. The appendix appeared to be viable and healthy at the level of the base of the appendix. The appendix was then divided just beyond these ligatures with a curved dissecting scissors. The appendix was placed in a specimen retrieval pouch. The specimen retrieval pouch containing the appendix was brought out through the suprapubic incision. The appendix was submitted as a specimen for study by the pathologist. The 12- mm port was reinserted through the suprapubic incision. The appendectomy site looked good. Irrigation was performed at the appendectomy site. Hemostasis was satisfactory at the appendectomy site. The appendiceal stump looked good. Irrigation was then performed all along the right lateral gutter. Irrigation was performed at the right subdiaphragmatic space and at the subhepatic space. Irrigation was performed in the pelvis. Irrigation was performed at the left upper quadrant of the peritoneal cavity. Irrigation was performed all along the left lateral gutter. More irrigation was then performed at the right lateral gutter and at the pelvis. All this irrigation was performed everywhere until all the purulent fluid was removed and there was only clear irrigation fluid in all four quadrants. Hemostasis remained satisfactory throughout the peritoneal cavity. Irrigation fluid was removed. The suprapubic port was removed. The epigastric port was removed. The laparoscope was removed. The infraumbilical port was removed. Carbon dioxide was removed from the peritoneal cavity by desufflation. The fascial layer of the suprapubic incision was closed with a series of simple interrupted stitches using 0-Vicryl suture. Skin margins were closed at all the incisions with subcuticular stitches using 4-0 Vicryl suture. Benzoin and 1/4-inch wide Steri-Strips were applied to the incisions. Sterile dressings were applied. The patient tolerated the operation well. The patient was transferred from the operating room to the recovery room in satisfactory condition. ABDIEL
[2017-09-16] MEDS: PIPERACILLIN/TAZOBACTAM 3.375 GM in NS 100 ML IV SCH ×4 (04:09→22:58)
[2017-09-16] MEDS: LR 1,000 ML IV SCH ×3 (06:47→22:13)
[2017-09-16] MEDS: IBUPROFEN 200 MG TABLET PO PRN ×4 (08:05→22:13)
[2017-09-16] MEDS: E ESTRADIOL E ESTRAD PO SCH (09:27)
[2017-09-16] MEDS: NORGEST PO SCH (09:27)
--- NOTE | 2017-09-16 15:01 | Progress Note ---
DATE 09/16/2017 POSTOP DAY #1 HISTORY OF PRESENT ILLNESS The patient reports that she feels much better today than she did preoperatively yesterday. She is having less abdominal pain. The patient has been ambulating in the halls. The patient had a full liquid diet for breakfast this morning. The patient is receiving intravenous Zosyn. She received some intravenous Zosyn preoperatively and has continued to receive intravenous Zosyn postoperatively every 6 hours. PHYSICAL EXAMINATION VITAL SIGNS: Temperature is 97.5 degrees Fahrenheit oral. Pulse is 75. Blood pressure is 114/67. Oxygen saturation is 99% on room air. ABDOMEN: The abdominal incisions look good. The abdomen is nondistended. LABORATORY DATA The preoperative plasma lactate was 1.6. The preoperative procalcitonin was 0.36. The patient did have a postoperative plasma lactate of 2.5 at 1248 hours on 01/2017. The patient had a postoperative plasma lactate of 4.3 at 1603 hours on 09/15/2017. The patient had a postoperative plasma lactate of 2.4 at 1817 hours on 09/15/2017. Plasma lactate is 1.1 this morning. Serum procalcitonin is 1.18 this morning. White blood cell count is 16,200 with 9 bands this morning. Hemoglobin is 11.2. Hematocrit is 34.2. Gram stain of the purulent fluid removed from the peritoneal cavity yesterday shows the presence of gram-negative rods. IMPRESSION 1. Doing well following laparoscopic appendectomy for treatment of acute appendicitis with perforation with severe generalized peritonitis on 09/15/2017. 2. Severe sepsis. PLAN 1. Continue to advance diet and activity as tolerated. 2. Continue intravenous Zosyn every 6 hours. 3. Continue sequential compression devices for deep venous thrombosis prophylaxis. 4. Continue to work on transitioning patient from intravenous to oral analgesics for pain control. 5. Continue to monitor temperature, pulse, white blood cell count with differential, plasma lactate and procalcitonin to monitor response to treatment of the severe sepsis. ABDIEL
[2017-09-16] MEDS: ACETAMINOPHEN 500 MG TABLET PO PRN (22:51)
[2017-09-17] MEDS: PIPERACILLIN/TAZOBACTAM 3.375 GM in NS 100 ML IV SCH ×4 (04:15→22:14)
[2017-09-17] MEDS: IBUPROFEN 200 MG TABLET PO PRN ×3 (04:18→20:47)
[2017-09-17] MEDS: ACETAMINOPHEN 500 MG TABLET PO PRN ×3 (08:31→23:39)
[2017-09-17] MEDS: LR 1,000 ML IV SCH ×3 (08:31→18:04)
[2017-09-17] MEDS: E ESTRADIOL E ESTRAD PO SCH (08:33)
[2017-09-17] MEDS: NORGEST PO SCH (08:33)
--- NOTE | 2017-09-17 15:31 | Progress Note ---
DATE 09/17/2017 POSTOP DAY #2 HISTORY The patient is tolerating a regular diet in small amounts. She gets full easily. She has not had any vomiting. The patient has started to pass a small amount of flatus. She has not had a bowel movement since the operation. She is using oral medications for pain control, for the most part. The patient continues to receive Zosyn intravenously every six hours. PHYSICAL EXAMINATION VITAL SIGNS: Temperature is 97.2 degrees Fahrenheit oral. Pulse is 71. Respiratory rate is 18. Blood pressure is 156/87. Oxygen saturation is 99% on room air. ABDOMEN: The abdominal incisions look good. The abdomen is nondistended. LABORATORY DATA White blood cell count is 14,000 with no bands today. Hemoglobin is 10.9. Hematocrit is 33.5. Plasma lactate is 1.2 today. Procalcitonin is 0.73. IMPRESSION 1. Doing well following laparoscopic appendectomy for treatment of acute appendicitis with perforation with severe generalized peritonitis on 09/15/2017. 2. Severe sepsis which is improving. PLAN 1. Continue to advance diet and activity as tolerated. 2. Continue intravenous Zosyn every six hours. 3. Continue sequential compression devices for deep venous thrombosis prophylaxis. 4. Continue to monitor temperature, pulse, white blood cell count with differential, plasma lactate and procalcitonin to monitor response to treatment of the severe sepsis. [facility]
[2017-09-18] MEDS: PIPERACILLIN/TAZOBACTAM 3.375 GM in NS 100 ML IV SCH ×4 (04:06→22:31)
[2017-09-18] MEDS: LR 1,000 ML IV SCH ×2 (06:11→20:56)
[2017-09-18] MEDS: ACETAMINOPHEN 500 MG TABLET PO PRN ×3 (06:12→20:54)
[2017-09-18] MEDS: E ESTRADIOL E ESTRAD PO SCH (10:07)
[2017-09-18] MEDS: NORGEST PO SCH (10:07)
[2017-09-18] MEDS: IBUPROFEN 200 MG TABLET PO PRN ×2 (10:07→17:03)
[2017-09-18 20:09] VITALS: RESP 18
--- NOTE | 2017-09-18 20:46 | Progress Note ---
DATE 09/18/2017 POSTOP DAY #3 HISTORY The patient states that she feels worse today than she did yesterday. She continues to tolerate a regular diet in small amounts. She does not have much appetite. Nothing tastes good. The patient did have a bowel movement today. She has been up ambulating in the halls. She is using ibuprofen and Tylenol only for pain control. The patient continues to receive Zosyn intravenously every six hours. PHYSICAL EXAMINATION VITAL SIGNS: Temperature is 97.9 degrees Fahrenheit oral. Pulse is 63. Respiratory rate is 20. Blood pressure is 131/77. Oxygen saturation is 97% on room air. ABDOMEN: The abdominal incisions all look good. No sign of any infection or any wound-healing problem at the incisions. LABORATORY DATA White blood cell count was 11,300 with no bands this morning. Hemoglobin was 10.4. Hematocrit was 32. Plasma lactate was 0.9. Procalcitonin was 0.37. IMPRESSION 1. Doing well following laparoscopic appendectomy for treatment of acute appendicitis with perforation with generalized peritonitis on 09/15/2017. 2. Severe sepsis which appears to be improving. PLAN 1. Continue to advance diet and activity as tolerated. 2. Continue intravenous Zosyn every six hours. 3. Continue sequential compression devices for deep venous thrombosis prophylaxis. 4. Monitor temperature and pulse and recheck white blood cell count tomorrow. [facility]
[2017-09-19] MEDS: LR 1,000 ML IV SCH ×2 (00:42→14:01)
[2017-09-19] MEDS: IBUPROFEN 200 MG TABLET PO PRN ×2 (00:44→08:56)
[2017-09-19] MEDS: PIPERACILLIN/TAZOBACTAM 3.375 GM in NS 100 ML IV SCH ×2 (04:38→11:02)
[2017-09-19] MEDS: ACETAMINOPHEN 500 MG TABLET PO PRN ×2 (04:42→11:07)
[2017-09-19 07:27] VITALS: BP 144/86; PULSE 69; TEMP 97.6; O2SAT 97
[2017-09-19] MEDS: E ESTRADIOL E ESTRAD PO SCH (08:57)
[2017-09-19] MEDS: NORGEST PO SCH (08:57)
--- NOTE | 2017-09-19 14:12 | Progress Note ---
DATE 09/19/2017 POSTOP DAY #4 HISTORY The patient is feeling better today. She slept better last night. She is eating better today. She had another bowel movement today. She is using ibuprofen and Tylenol only for pain control. The patient has been receiving Zosyn intravenously every 6 hours. PHYSICAL EXAMINATION VITAL SIGNS: Temperature is 97.6 degrees Fahrenheit oral. Pulse is 69. Respiratory rate is 18. Blood pressure is 144/86. Oxygen saturation is 97% on room air. ABDOMEN: The abdominal incisions look good. LABORATORY DATA White blood cell count is 9,500 with no bands. Hemoglobin is 11. Hematocrit is 32.7. IMPRESSION 1. Doing well following laparoscopic appendectomy for treatment of acute appendicitis with perforation and generalized peritonitis on 09/15/2017. 2. Resolution of severe sepsis. PLAN Dismiss patient from [facility] today. DISCHARGE MEDICATIONS 1. Resume medications which the patient was taking prior to admission to the hospital. 2. Tylenol 325 mg 1-2 tablets p.o. every 5 hours p.r.n. pain. 3. Ibuprofen 200 mg 2-4 tablets p.o. every 6 hours p.r.n. pain. 4. Cipro 500 mg one p.o. b.i.d. (dispense 8 - no refills). 5. Flagyl 500 mg one p.o. t.i.d. (dispense 12 - no refills). MTDD
--- NOTE | 2017-09-27 14:04 | Discharge Summary ---
DISCHARGE DIAGNOSES 1. Acute necrotizing appendicitis with perforation and generalized peritonitis. 2. Severe sepsis. OPERATION Laparoscopic appendectomy on 09/15/2017. HOSPITAL COURSE This patient was admitted to [facility] on 09/15/2017. The patient was initially evaluated at the emergency room at [facility]. The patient had acute abdominal pain. White blood cell count was 21,600 with 93% neutrophils. Liver function tests were normal. Urinalysis was unremarkable. The patient did undergo a CT scan of the abdomen and pelvis on 09/15/2017 at the time of emergency room evaluation. This did show findings consistent with acute appendicitis. The patient was admitted to [facility] from the emergency room. The patient was thought at the time of admission to the hospital to have acute appendicitis and sepsis. The patient was admitted to [facility] by Dr. Doss. History and physical examination findings at the time of admission to the hospital can be found in the dictated admission history and physical examination report in the chart. The patient did have a preoperative plasma lactate performed and the result of this was 1.6. Preoperative procalcitonin was 0.36. The patient did receive some intravenous Zosyn preoperatively. The patient did go to the operating room on 09/15/2017. The patient underwent laparoscopic appendectomy performed by Dr. Doss. The patient was found at the time of operation to have acute appendicitis with perforation and generalized peritonitis. Details of operative findings can be found in the dictated report in the chart. The patient did tolerate the operation well. There were no complications during the operation. The patient did have intravenous Zosyn every six hours continued postoperatively. The patient did have a postoperative plasma lactate of 2.5 at 1248 hours on 09/15/2017. The patient had a postoperative plasma lactate of 4.3 at 1603 hours on 09/15/2017. The patient had a postoperative plasma lactate of 2.4 at 1817 hours on 2016. On the first postoperative day, the patient reported that she was feeling better than she had preoperatively. She was having less abdominal pain. The patient had been ambulating in the halls. The patient had a full liquid diet for breakfast on the first postoperative day. The patient was receiving intravenous Zosyn. The patient was afebrile. Pulse was 75. The abdominal incisions looked good. Plasma lactate was 1.1 on the morning of the first postoperative day. Serum procalcitonin was 1.18 at this time. White blood cell count was 16,200 with 9 bands. The patient was doing well. It was thought that the patient had experienced severe sepsis in association with the acute appendicitis. Diet and activity were advanced as tolerated. Intravenous Zosyn was continued. Sequential compression devices were being used for deep venous thrombosis prophylaxis at this time. Oral analgesics were made available for pain control. On the second postoperative day, the patient was tolerating a regular diet in small amounts. She did get full easily when eating. She had not been experiencing any vomiting. The patient was starting to pass a small amount of flatus. The patient was using oral medications for pain control for the most part. The patient continued to receive intravenous Zosyn every six hours. The patient was afebrile. Pulse was 71. The abdominal incisions looked good. White blood cell count was 14,000 with no bands on the second postoperative day. Plasma lactate was 1.2. Procalcitonin was 0.73. The patient appeared to be doing well overall. The severe sepsis appeared to be improving. Diet and activity continued to be advanced as tolerated. Sequential compression devices continued to be used for deep venous thrombosis prophylaxis. On the third postoperative day, the patient stated that she felt worse than she had on the previous day. The patient did continue to tolerate a regular diet in small amounts. She did not have much appetite. The patient did have a bowel movement on the third postoperative day. She was up ambulating in the halls. She was using only ibuprofen and Tylenol for pain control at this time. The patient continued to receive Zosyn intravenously every six hours. The patient was afebrile. Pulse was 63. The abdominal incisions looked good. White blood cell count was 11,300 with no bands on the third postoperative day. Plasma lactate was 0.9. Procalcitonin was 0.37. The severe sepsis appeared to be improving. The patient continued to receive Zosyn every six hours. Diet and activity continued to be advanced as tolerated. Sequential compression devices were being used for deep venous thrombosis prophylaxis. On the fourth postoperative day, the patient reported that she was feeling better. She slept better during the previous night. She was eating better on the fourth postoperative day. She did have another bowel movement on the fourth postoperative day. The patient was using ibuprofen and Tylenol only for pain control. She continued to receive Zosyn intravenously every six hours. White blood cell count was 9500 with no bands. The patient remained afebrile. Pulse was 69. The severe sepsis appeared to be resolved. The patient was dismissed from [facility] in satisfactory condition on the fourth postoperative day. A pathology report was later returned on the appendix submitted at the time of operation. Pathology report diagnosis on the appendix was marked acute necrotizing appendicitis and periappendicitis with focal rupture. DISCHARGE MEDICATIONS 1. control pills one p.o. daily. 2. Multivitamin one p.o. daily. 3. Tylenol 325 mg one to two tablets p.o. every five hours p.r.n. pain. 4. Ibuprofen 200 mg two to four tablets p.o. every six hours p.r.n. pain. 5. Cipro 500 mg one p.o. b.i.d. (dispense eight - no refills). 6. Flagyl 500 mg one p.o. t.i.d. (dispense 12 - no refills). DISCHARGE DISPOSITION Followup office visit with Dr. Doss. ABDIEL
== END 2017-09-19 13:45 | disposition home or self-care (01) | DRG 853 ==
LOC: ED 01:05 → SRG 01:05
PROVIDERS: ADMIT Surgery; ATTEND Surgery